=== PATIENT | male | born 1930 | race Caucasian/White ===

== ENCOUNTER → 2016-08-23 | Outpatient (CLI) | payer MEDICARE ==
[~2016-08-23] MED LIST: ASPI81 PO; BISO1TAB6 PO; CENTTAB9 PO; HYDR12.56 PO; NORT10S PO; OMEP20TA PO; TEST200I13 IM; VENL25TA14 PO; VITA100020 IM
[2016-08-23 13:15] LABS: AUTOMATED NEUTROPHIL # 6.7 TH/MM3 (1.8-7.7); BASOPHIL # 0.1 TH/MM3 (0-0.2); BASOPHIL % 0.7 % (0.0-2.0); EOSINOPHIL # 0.3 TH/MM3 (0-0.4); EOSINOPHIL % 2.8 % (0.0-4.0); HEMATOCRIT 44.4 % (39.0-51.0); HEMO FLAGS DIFF FINAL; LYMPH % 15.7 % (9.0-44.0); LYMPHOCYTE # 1.5 TH/MM3 (1.0-4.8); MEAN CELL VOLUME 78.6 FL (80.0-100.0); MEAN CORPUSCULAR HEMOGLOBIN 25.4 PG (27.0-34.0); MEAN CORPUSCULAR HGB CONC 32.3 % (32.0-36.0); MONO % 7.7 % (0.0-8.0); NEUT % 73.1 % (16.0-70.0); PLATELET COUNT 284 TH/MM3 (150-450); RED BLOOD COUNT 5.65 MIL/MM3 (4.50-5.90); RED CELL DISTRIBUTION WIDTH 16.6 % (11.6-17.2); WHITE BLOOD COUNT 9.2 TH/MM3 (4.0-11.0)
== END ==
LOC: PLAB 11:42
PROVIDERS: ATTEND Family Medicine
DX: E29.1 Testicular hypofunction (principal); Z12.5 Encounter for screening for malignant neoplasm of prostate
CPT/HCPCS: 36415; 84402; 84403; 85025; G0103

== ENCOUNTER → 2017-01-31 | Outpatient (CLI) | payer MEDICARE ==
[2017-01-31 15:56] LABS: AUTOMATED NEUTROPHIL # 7.5 TH/MM3 (1.8-7.7); BASOPHIL # 0.1 TH/MM3 (0-0.2); BASOPHIL % 1.2 % (0.0-2.0); EOSINOPHIL # 0.3 TH/MM3 (0-0.4); EOSINOPHIL % 2.8 % (0.0-4.0); HEMATOCRIT 43.7 % (39.0-51.0); HEMO FLAGS DIFF FINAL; LYMPHOCYTE # 1.9 TH/MM3 (1.0-4.8); MEAN CORPUSCULAR HEMOGLOBIN 20.9 PG (27.0-34.0); MEAN CORPUSCULAR HGB CONC 30.3 % (32.0-36.0); MONO % 6.6 % (0.0-8.0); NEUT % 71.4 % (16.0-70.0); PLATELET COUNT 400 TH/MM3 (150-450); RED BLOOD COUNT 6.33 MIL/MM3 (4.50-5.90); RED CELL DISTRIBUTION WIDTH 18.7 % (11.6-17.2); WHITE BLOOD COUNT 10.5 TH/MM3 (4.0-11.0)
[2017-01-31 15:59] LABS: BLOOD, URINE NEG (NEG); COMMENT (UR) CULT NOT INDICATED; CULTURE IF INDICATED CULT NOT INDICATED; GLUCOSE,URINE NEG (NEG); KETONE, URINE NEG (NEG); NITRITE,URINE NEG (NEG); URINE COLOR YELLOW (YELLW/STRAW)
[2017-01-31 16:27] LABS: POTASSIUM 4.3 MEQ/L (3.5-5.1)
== END ==
LOC: PLAB 12:22
PROVIDERS: ATTEND Internal Medicine Nephrology
DX: N18.3 Chronic kidney disease, stage 3 (moderate) (principal); E55.9 Vitamin D deficiency, unspecified
CPT/HCPCS: 36415; 80069; 81001; 82306; 82570; 83970; 84156; 85025

== ENCOUNTER → 2017-06-17 | Outpatient (CLI) | payer MEDICARE ==
[2017-06-17 16:24] LABS: ALBUMIN 3.7 GM/DL (3.4-5.0); BICARBONATE 31.2 MEQ/L (21.0-32.0); CALCIUM 8.7 MG/DL (8.5-10.1); CREATININE 1.78 MG/DL (0.60-1.30); PHOSPHORUS 2.4 MG/DL (2.5-4.9)
== END ==
LOC: PLAB 13:02
PROVIDERS: ATTEND Physician Assistant
DX: N18.3 Chronic kidney disease, stage 3 (moderate) (principal)
CPT/HCPCS: 36415; 80069

== ENCOUNTER → 2017-07-04 | Outpatient (CLI) | payer MEDICARE ==
[2017-07-04 14:04] LABS: AUTOMATED NEUTROPHIL # 5.7 TH/MM3 (1.8-7.7); BASOPHIL # 0.1 TH/MM3 (0-0.2); BASOPHIL % 1.3 % (0.0-2.0); EOSINOPHIL # 0.4 TH/MM3 (0-0.4); EOSINOPHIL % 4.5 % (0.0-4.0); HEMATOCRIT 46.3 % (39.0-51.0); LYMPH % 15.1 % (9.0-44.0); LYMPHOCYTE # 1.2 TH/MM3 (1.0-4.8); MEAN CELL VOLUME 76.2 FL (80.0-100.0); MEAN CORPUSCULAR HEMOGLOBIN 24.6 PG (27.0-34.0); MEAN CORPUSCULAR HGB CONC 32.3 % (32.0-36.0); MEAN PLATELET VOLUME 7.3 FL (7.0-11.0); MONO % 8.3 % (0.0-8.0); MONOCYTE # 0.7 TH/MM3 (0-0.9); NEUT % 70.8 % (16.0-70.0); PLATELET COUNT 345 TH/MM3 (150-450); RED BLOOD COUNT 6.07 MIL/MM3 (4.50-5.90); RED CELL DISTRIBUTION WIDTH 20.4 % (11.6-17.2); WHITE BLOOD COUNT 8.1 TH/MM3 (4.0-11.0)
[2017-07-04 14:28] LABS: ALBUMIN 3.7 GM/DL (3.4-5.0); ALT (GPT) 23 U/L (12-78); AST (GOT) 22 U/L (15-37); BICARBONATE 27.9 MEQ/L (21.0-32.0); BLOOD UREA NITROGEN 18 MG/DL (7-18); CALCIUM 8.8 MG/DL (8.5-10.1); CHLORIDE 101 MEQ/L (98-107); CHOLESTEROL 129 MG/DL (120-200); CREATININE 1.74 MG/DL (0.60-1.30); GLOMERULAR FILTRATION RATE 37 ML/MIN (>89); GLUCOSE,FASTING 143 MG/DL (74-99); SODIUM (NA) 136 MEQ/L (136-145); TRIGLYCERIDES 84 MG/DL (42-150)
[2017-07-04 14:31] LABS: ALKALINE PHOSPHATASE 77 U/L (45-117); CHOLESTEROL/ HDL RATIO 3.66 RATIO; HDL CHOLESTEROL 35.2 MG/DL (40.0-60.0); LDL CHOLESTEROL 77 MG/DL (0-99); TOTAL BILIRUBIN ADULT 0.7 MG/DL (0.2-1.0); TOTAL PROTEIN 7.7 GM/DL (6.4-8.2)
[2017-07-06 14:47] LABS: FREE TESTOSTERONE 8.35 ng/dL (2.69-9.61)
== END ==
LOC: PLAB 10:24
PROVIDERS: ATTEND Family Medicine
DX: I10 Essential (primary) hypertension (principal); E29.1 Testicular hypofunction
CPT/HCPCS: 36415; 80053; 80061; 84403; 84410; 85025

== ENCOUNTER → 2017-11-13 | Outpatient (CLI) | payer MEDICARE ==
[2017-11-13 14:35] LABS: ALBUMIN 3.7 GM/DL (3.4-5.0); AST (GOT) 20 U/L (15-37); BICARBONATE 23.8 MEQ/L (21.0-32.0); BLOOD UREA NITROGEN 24 MG/DL (7-18); CHLORIDE 104 MEQ/L (98-107); CHOLESTEROL 123 MG/DL (120-200); CREATININE 1.62 MG/DL (0.60-1.30); GLOMERULAR FILTRATION RATE 40 ML/MIN (>89); GLUCOSE,FASTING 139 MG/DL (74-99); SODIUM (NA) 138 MEQ/L (136-145)
[2017-11-13 14:41] LABS: ALKALINE PHOSPHATASE 77 U/L (45-117); ALT (GPT) 21 U/L (12-78); CHOLESTEROL/ HDL RATIO 3.68 RATIO; HDL CHOLESTEROL 33.4 MG/DL (40.0-60.0); LDL CHOLESTEROL 53 MG/DL (0-99); TOTAL BILIRUBIN ADULT 0.4 MG/DL (0.2-1.0); TOTAL PROTEIN 7.3 GM/DL (6.4-8.2); TRIGLYCERIDES 185 MG/DL (42-150)
[2017-11-13 16:03] LABS: HEMOGLOBIN A1C 6.9 % (4.3-6.0)
== END ==
LOC: PLAB 11:09
PROVIDERS: ATTEND Family Medicine
DX: E11.9 Type 2 diabetes mellitus without complications (principal)
CPT/HCPCS: 36415; 80053; 80061; 82043; 83036